=== PATIENT | female | born 1980 | race Caucasian/White ===

== ENCOUNTER 2017-02-04 17:00 | Emergency (ER) | payer SELFPAY ==
[2017-02-04] MEDS ORDERED: Ondansetron 4 MG/2 ML SDV IVPUSH ONE ×2 (17:14→18:01)
[2017-02-04] MEDS ORDERED: Sodium Chloride 0.9% 1,000 ML IV ONE (17:14)
--- NOTE | 2017-02-04 17:16 | EDM.PDOC ---
ED HPI GENERAL MEDICAL PROBLEM - General Chief Complaint: Gastrointestinal Problem Stated Complaint: VOMITING Time Seen by Provider: 02/04/17 17:13 Source of Information: Reports: Patient - History of Present Illness INITIAL COMMENTS - FREE TEXT/NARRATIVE: Patient is here today for evaluation of acute onset nausea and vomiting. She states it started at approximately 2 PM today she did go to [employer] to get lunch and had felt fine all morning, she states this and she started eating even with the first bite her vomiting started. She is here for persistent vomiting and nausea as well as upper abdominal pain. She denies any diarrhea or constipation. She states her bowel movements have been normal every single day , soft and formed. Patient denies any history of chronic abdominal disorders. She is not on any medications. She has not had any contact with people with GI illness, both of her sons have had respiratory illnesses. Patient has had a history of cholecystectomy and tubal ligation as well as 2 sections. Upper Epigastric Pain Score (Numeric/FACES): 10 - Related Data Allergies Allergy/AdvReac Type Severity Reaction Status Date / Time Penicillins Allergy Rash Verified 02/04/17 17:06 Home Meds: Home Meds Ondansetron [Zofran ODT] 4 mg PO Q8H PRN #10 tab.dis 02/04/17 [Rx] ED ROS GENERAL - Review of Systems Review Of Systems: See Below Constitutional: Denies: Fever, Chills, Weakness HEENT: Reports: No Symptoms Respiratory: Reports: No Symptoms Cardiovascular: Reports: No Symptoms GI/Abdominal: Reports: Abdominal Pain (Epigastric), Decreased Appetite, Nausea, Vomiting. Denies: Black Stool, Bloody Stool, Constipation, Diarrhea : Reports: No Symptoms Musculoskeletal: Reports: No Symptoms Skin: Reports: No Symptoms Neurological: Reports: No Symptoms ED EXAM, GI/ABD - Physical Exam Exam: See Below Exam Limited By: No Limitations General Appearance: Alert, WD/WN, Anxious, Mild Distress Throat/Mouth: Normal Inspection, Normal Oropharynx Head: Atraumatic, Normocephalic Neck: Normal Inspection. No: Lymphadenopathy (L), Lymphadenopathy (R) Respiratory/Chest: No Respiratory Distress, Normal Breath Sounds, No Accessory Muscle Use Cardiovascular: Normal Peripheral Pulses, Regular Rate, Rhythm, No Murmur, No Rub GI/Abdominal Exam: Normal Bowel Sounds, Soft, Other (Mild diffuse abdominal tenderness) Extremities: Normal Inspection Neurological: Alert, Oriented Psychiatric: Anxious Skin Exam: Warm, Dry, Intact Course - Vital Signs Last Recorded V/S: Last Vital Signs Temp 97.0 F 02/04/17 20:58 Pulse 55 L 02/04/17 20:58 Resp 16 02/04/17 20:58 BP 124/72 02/04/17 20:58 Pulse Ox 95 02/04/17 20:58 - Orders/Labs/Meds Orders: Active Orders 24 hr Category Date Time Status Abdomen Pelvis w Cont [CT] Stat Exams 02/04/17 18:13 Taken HCG QUALITATIVE,URINE [URCHEM] Stat Lab 02/04/17 17:15 Uncollected UA W/MICROSCOPIC [URIN] Stat Lab 02/04/17 17:15 Uncollected Labs: Laboratory Tests 02/04/17 02/04/17 02/04/17 Range/Units 17:15 17:15 17:26 WBC 10.22 H (3.98-10.04) K/mm3 RBC 4.70 (3.98-5.22) M/mm3 Hgb 15.0 (11.2-15.7) gm/L Hct 43.8 (34.1-44.9) % MCV 93.2 (79.4-94.8) fl MCH 31.9 (25.6-32.2) pg MCHC 34.2 (32.2-35.5) g/dl RDW Std Deviation 43.8 (36.4-46.3) fL Plt Count 459 H (182-369) K/mm3 MPV 10.8 (9.4-12.3) fl Neutrophils % (Manual) 70 H (40-60) % Band Neutrophils % 0 (0-10) % Lymphocytes % (Manual) 22 (20-40) % Atypical Lymphs % 0 % Monocytes % (Manual) 6 (2-10) % Eosinophils % (Manual) 1 (0.7-5.8) % Basophils % (Manual) 1 (0.1-1.2) Platelet Estimate Increased Plt Morphology Comment See note RBC Morph Comment Normal Sodium 139 (136-145) mEq/L Potassium 3.1 L (3.5-5.1) mEq/L Chloride 100 (98-107) mEq/L Carbon Dioxide 23 (21-32) mEq/L Anion Gap 19.1 H (5-15) BUN 4 L (7-18) mg/dL Creatinine 1.2 H (0.55-1.02) mg/dL Est Cr Clr Drug Dosing 63.10 mL/min Estimated GFR (MDRD) 50 (>60) mL/min BUN/Creatinine Ratio 3.3 L (14-18) Glucose 136 H (74-106) mg/dL Calcium 9.8 (8.5-10.1) mg/dL Total Bilirubin 0.9 (0.2-1.0) mg/dL AST 27 (15-37) U/L ALT 28 (14-59) U/L Alkaline Phosphatase 85 (46-116) U/L C-Reactive Protein < 0.2 (<1.0) mg/dL Total Protein 8.1 (6.4-8.2) g/dl Albumin 4.8 (3.4-5.0) g/dl Globulin 3.3 gm/dL Albumin/Globulin Ratio 1.5 (1-2) Lipase 138 (73-393) U/L H. pylori IgG Antibody Negative (NEGATIVE) Meds: Medications Discontinued Medications Generic Name Dose Route Start Last Admin Trade Name Freq PRN Reason Stop Dose Admin Diphenhydramine HCl 25 mg 02/04/17 18:12 02/04/17 18:20 Benadryl IVPUSH 02/04/17 18:13 25 mg ONETIME ONE Administration Hydromorphone HCl 0.5 mg 02/04/17 20:28 02/04/17 20:38 Dilaudid IVPUSH 02/04/17 20:29 0.5 mg ONETIME ONE Administration Sodium Chloride 1,000 mls @ 999 mls/hr 02/04/17 17:14 02/04/17 17:22 Normal Saline IV 02/04/17 18:14 999 mls/hr ONETIME ONE Administration Iopamidol 100 ml 02/04/17 18:54 02/04/17 19:03 Isovue-300 (61%) IVPUSH 02/04/17 18:55 100 ml ONETIME ONE Administration Ketorolac Tromethamine 30 mg 02/04/17 17:24 02/04/17 17:35 Toradol IVPUSH 02/04/17 17:25 30 mg ONETIME ONE Administration Lorazepam 0.5 mg 02/04/17 17:24 02/04/17 17:32 Ativan IVPUSH 02/04/17 17:25 0.5 mg ONETIME ONE Administration Metoclopramide HCl 5 mg 02/04/17 18:12 02/04/17 18:24 Reglan IVPUSH 02/04/17 18:13 5 mg ONETIME ONE Administration Ondansetron HCl 4 mg 02/04/17 17:14 02/04/17 17:22 Zofran IVPUSH 02/04/17 17:15 4 mg ONETIME ONE Administration Ondansetron HCl 4 mg 02/04/17 18:01 02/04/17 18:09 Zofran IVPUSH 02/04/17 18:02 4 mg ONETIME ONE Administration Sodium Chloride 10 ml 02/04/17 18:54 02/04/17 19:03 Saline Flush FLUSH 02/04/17 18:55 10 ml ONETIME ONE Administration - Re-Assessments/Exams Free Text/Narrative Re-Assessment/Exam: Patient with moderate epigastric tenderness and persistent vomiting. She had mild relief improvement in nausea with 4 mg Zofran 2 doses. Pain persists after Toradol, though she is much more relaxed with the Ativan. Will give patient [address] her abdomen/pelvis. Will use IV contrast only as I do not feel patient would tolerate oral contrast. 02/04/17 18:31 Upon recheck after patient's CT she is resting comfortably and sleeping in her room. Patient's friend states that her nausea had pretty much resolved and she was not having significant pain after the Reglan. 02/04/17 19:37 CT demonstrates no acute abnormality. WBC mildly elevated at 10,220 with 70% neutrophils and no bands. Potassium a bit low at 3.1 likely due to patient's vomiting. Patient does report marijuana use but states that this is rare and intermittent. She denies use recently. I did advise patient that this could actually worsen her nausea and vomiting and recommend that she avoid marijuana use. Will discharge patient home with Zofran for nausea. Recommend bland diet and increased oral fluids. Patient has a bit of an upset stomach still so will not give her oral potassium, will give her handout for high potassium diet. Patient will follow-up with her PCP next week or return to the ER if needed. 02/04/17 20:23 02/04/17 21:18 Departure - Departure Time of Disposition: 20:46 Disposition: Home, Self-Care 01 Condition: Fair Clinical Impression: Gastroenteritis - Discharge Information Prescriptions: Ondansetron [Zofran ODT] 4 mg PO Q8H PRN #10 tab.dis PRN Reason: Nausea Instructions: Viral Gastroenteritis, Adult, [id number], Dehydration, Adult, [id number] Referrals: PCP,None [Primary Care Provider] - Forms: ED Department Discharge Additional Instructions: Take the Zofran as needed for nausea or vomiting. Try to keep with the oral fluids mainly water but Gatorade if needed. Avoid marijuana use. You may start trying to eat tomorrow if feeling better, bland diet with limited sugar/spice/dairy until your back to normal. Your potassium was a bit low, this is very common with vomiting. I have enclosed a handout for high potassium diet I recommend that you follow this for the next week once you are tolerating oral foods again. Follow up with your PCP next week or certainly return to ER if any worsening of symptoms. - My Orders Last 24 Hours: My Active Orders 02/04/17 17:15 HCG QUALITATIVE,URINE [URCHEM] Stat UA W/MICROSCOPIC [URIN] Stat 02/04/17 18:13 Abdomen Pelvis w Cont [CT] Stat - Assessment/Plan Last 24 Hours: My Active Orders 02/04/17 17:15 HCG QUALITATIVE,URINE [URCHEM] Stat UA W/MICROSCOPIC [URIN] Stat 02/04/17 18:13 Abdomen Pelvis w Cont [CT] Stat
[2017-02-04] MEDS ORDERED: LORazepam 2 MG/ML SDV IVPUSH ONE (17:24)
[2017-02-04] MEDS ORDERED: Ketorolac 30 MG/ML SDV IVPUSH ONE (17:24)
[2017-02-04] MEDS ORDERED: diphenhydrAMINE 50 MG/ML SDV IVPUSH ONE (18:12)
[2017-02-04] MEDS ORDERED: Metoclopramide 10 MG/2 ML SDV IVPUSH ONE (18:12)
[2017-02-04] MEDS ORDERED: Iopamidol 612 MG/ML 100 ML Bottle IVPUSH ONE (18:54)
[2017-02-04] MEDS ORDERED: Sodium Chloride 0.9% 10 ML Syringe FLUSH ONE (18:54)
[2017-02-04] MEDS ORDERED: HYDROmorphone 0.5 MG/0.5 ML Syringe IVPUSH ONE (20:28)
--- NOTE | 2017-02-06 09:23 | CT ---
CT abdomen and pelvis Technique: Multiple axial sections were obtained from above the dome of the diaphragm inferiorly through the pubic symphysis. Intravenous contrast was utilized. No oral contrast has been given. Delayed images were obtained through the bladder. Comparison: No prior abdominal imaging. Findings: Small portion of the visualized lung bases shows nothing acute. Visualized liver and spleen are within normal limits. Adrenal glands show no nodule. Pancreas is within normal limits. Kidneys show symmetric contrast enhancement without hydronephrosis or mass. Surgical clips are seen from prior cholecystectomy. Aorta shows no aneurysmal dilatation. No retroperitoneal adenopathy or mesenteric abnormalities are seen. No pelvic mass or adenopathy is identified. Contrast seen within both distal ureters and within the bladder. Follicles are seen within both ovaries. Appendix is seen and appears normal in size. No free fluid or inflammatory change is seen. Bone window settings were reviewed which appear within normal limits for the patient's age. Impression: 1. Nothing acute is identified on CT study of the abdomen and pelvis. Diagnostic code #2 I agree with preliminary report issued by [employer] ([facility] report finalized on 02/04/17, 8:53 PM Central Time)
== END 2017-02-04 21:12 | disposition home or self-care (01) ==
LOC: JD.ED 17:00
DX: K52.9 Noninfective gastroenteritis and colitis, unspecified (principal); Z88.0 Allergy status to penicillin; Z90.49 Acquired absence of other specified parts of digestive tract
CPT/HCPCS: 36415; 74177; 80053; 83690; 85025; 86140; 86677; 96361; 96374; 96375; 96376; 99284; J1170; J1200; J1885; J2060; J2405; J2765; J7040; J7050; Q9967

== ENCOUNTER 2022-04-12 20:43 | Emergency (ER) | payer SELFPAY ==
[2022-04-12] MEDS ORDERED: Metoclopramide 10 MG/2 ML SDV IVPUSH ONE (21:00)
[2022-04-12] MEDS ORDERED: Dextrose 5%-0.9% NaCl 1,000 ML IV SCH (21:00)
[2022-04-12] MEDS ORDERED: HYDROmorphone 1 MG/ML Syringe IVPUSH ONE (21:01)
[2022-04-12 22:29] LABS: ESTIMATED GFR 71 mL/min (>60)
[2022-04-12] MEDS ORDERED: Iopamidol 612 MG/ML 100 ML Bottle IVPUSH ONE (22:48)
[2022-04-12] MEDS ORDERED: Lactated Ringers 1,000 ML IV SCH (23:00)
== END 2022-04-13 00:10 | disposition home or self-care (01) ==
LOC: JD.ED 20:43
DX: O99.611 Diseases of the digestive system complicating pregnancy, first trimester (principal); K52.9 Noninfective gastroenteritis and colitis, unspecified; O09.521 Supervision of elderly multigravida, first trimester; Z88.0 Allergy status to penicillin
CPT/HCPCS: 36415; 74018; 74018-26; 74177; 74177-26; 80053; 80306; 80307; 81001; 82977; 83690; 83735; 83880; 84702; 84703; 85025; 85610; 86140; 86850; 86900; 86901; 96361; 96374; 96375; 99284; 99284-25; J1170; J2765; J7042; J7120; Q9967

== ENCOUNTER 2022-09-10 22:12 | Emergency (ER) | payer MEDICAID ==
[2022-09-10] MEDS ORDERED: Prochlorperazine 10 MG/2 ML SDV IVPUSH ONE (23:04)
[2022-09-10] MEDS ORDERED: diphenhydrAMINE 50 MG/ML SDV IVPUSH ONE (23:04)
[2022-09-10] MEDS ORDERED: Ketorolac 30 MG/ML SDV IVPUSH ONE (23:04)
[2022-09-10] MEDS ORDERED: Sodium Chloride 0.9% 10 ML Syringe FLUSH PRN (23:05)
[2022-09-10 23:35] LABS: BASOPHILS ABSOLUTE AUTO 0.01 K/mm3 (0.01-0.08); BASOPHILS PERCENT AUTO 0.1 % (0.1-1.2); EOSINOPHILS ABSOLUTE AUTO 0.01 K/mm3 (0.04-0.36); EOSINOPHILS PERCENT AUTO 0.1 (0.7-5.8); HEMATOCRIT 43.9 % (34.1-44.9); IMMATURE GRAN ABSOLUTE AUTO 0.03 K/mm3 (0.00-0.10); IMMATURE GRAN PERCENT AUTO 0.4 % (<=1.0); LYMPHOCYTES ABSOLUTE AUTO 1.19 K/mm3 (1.18-3.74); LYMPHOCYTES PERCENT AUTO 14.9 % (19.3-51.7); MEAN CORPUSCULAR HEMOGLOBIN 30.8 pg (25.6-32.2); MEAN CORPUSCULAR HGB CONC 34.2 g/dl (32.2-35.5); MEAN CORPUSCULAR VOLUME 90.1 fl (79.4-94.8); MEAN PLATELET VOLUME 10.3 fl (9.4-12.3); MONOCYTES PERCENT AUTO 8.8 % (4.7-12.5); NEUTROPHILS ABSOLUTE AUTO 6.04 K/mm3 (1.56-6.13); NEUTROPHILS PERCENT AUTO 75.7 % (34.0-71.1); PLATELET COUNT,PLT 524 K/mm3 (182-369); RED BLOOD CELL COUNT 4.87 M/mm3 (3.98-5.22); WHITE BLOOD CELL COUNT,WBC 7.98 K/mm3 (3.98-10.04)
[2022-09-10 23:55] LABS: A/G RATIO 1.1 (1-2); ALBUMIN 4.2 g/dl (3.4-5.0); ANION GAP 18.2 (5-15); BILIRUBIN TOTAL 0.3 mg/dL (0.2-1.0); CALCIUM 10.2 mg/dL (8.5-10.1); EST CRCL DRUG DOSING (CG) 80.24 mL/min; POTASSIUM,K 4.2 mEq/L (3.5-5.1); PROTEIN TOTAL,TP 8.2 g/dl (6.4-8.2)
[2022-09-11] MEDS ORDERED: Magnesium Oxide 400 MG Tab PO ONE (01:19)
== END 2022-09-11 01:56 | disposition home or self-care (01) ==
LOC: JD.ED 22:12
DX: R11.2 Nausea with vomiting, unspecified (principal)
CPT/HCPCS: 36415; 80053; 83735; 85025; 93005; 96374; 96375; 99285; A9270; J0780; J1200; J1885; 93010; 99284

== ENCOUNTER 2022-11-04 16:49 | Emergency (ER) | payer SELFPAY ==
[2022-11-04] MEDS ORDERED: Ondansetron 4 MG/2 ML SDV IVPUSH ONE (17:10)
[2022-11-04] MEDS ORDERED: HYDROmorphone 0.5 MG/0.5 ML Syringe IVPUSH ONE ×2 (17:10→17:52)
[2022-11-04] MEDS ORDERED: Metoclopramide 10 MG/2 ML SDV IVPUSH ONE (17:16)
[2022-11-04 17:25] LABS: BASOPHILS ABSOLUTE AUTO 0.1 K/mm3 (0.0-0.2); BASOPHILS PERCENT AUTO 0.5 % (0.0-1.0); EOSINOPHILS ABSOLUTE AUTO 0.1 K/mm3 (0.0-0.4); EOSINOPHILS PERCENT AUTO 0.9 % (0.0-6.0); HEMATOCRIT 40.2 % (37.0-47.0); HEMOGLOBIN 13.8 gm/dl (12.0-16.0); IMMATURE GRAN ABSOLUTE AUTO 0.02 K/mm3 (0.00-0.05); IMMATURE GRAN PERCENT AUTO 0.2 % (0.0-0.4); LYMPHOCYTES ABSOLUTE AUTO 2.2 K/mm3 (1.0-4.8); LYMPHOCYTES PERCENT AUTO 22.6 % (24.0-44.0); MEAN CORPUSCULAR HEMOGLOBIN 31.1 pg (28.0-32.0); MEAN CORPUSCULAR HGB CONC 34.3 g/dl (32.0-36.0); MEAN CORPUSCULAR VOLUME 90.5 fl (83.0-99.0); MEAN PLATELET VOLUME 10.2 fl (9.4-12.3); MONOCYTES ABSOLUTE AUTO 0.7 K/mm3 (0.0-0.8); NEUTROPHILS ABSOLUTE AUTO 6.7 K/mm3 (1.8-7.7); NEUTROPHILS PERCENT AUTO 68.8 % (41.0-71.0); PLATELET COUNT,PLT 462 K/mm3 (150-400); RED BLOOD CELL COUNT 4.44 M/mm3 (4.10-5.30); WHITE BLOOD CELL COUNT,WBC 9.79 K/mm3 (3.9-11.3)
[2022-11-04 17:49] LABS: A/G RATIO 1.4 (1-2); ALANINE AMINOTRANSFERASE,ALT 21 U/L (14-59); ALBUMIN 4.6 g/dl (3.4-5.0); ALKALINE PHOSPHATASE 137 U/L (46-116); ANION GAP 14.6 (5-15); ASPARTATE AMNIOTRANSFERASE,AST 14 U/L (15-37); BILIRUBIN TOTAL 0.6 mg/dL (0.2-1.0); BLOOD UREA NITROGEN,BUN 7 mg/dL (7-18); C-REACTIVE PROTEIN <0.2 mg/dL (<1.0); CARBON DIOXIDE,CO2 23 mEq/L (21-32); CHLORIDE,CL 105 mEq/L (98-107); EST CRCL DRUG DOSING (CG) 80.24 mL/min; ESTIMATED GFR 71 mL/min (>60); GLUCOSE RANDOM 119 mg/dL (70-99); POTASSIUM,K 3.6 mEq/L (3.5-5.1); PROTEIN TOTAL,TP 7.9 g/dl (6.4-8.2); SODIUM,NA 139 mEq/L (136-145)
[2022-11-04] MEDS ORDERED: LORazepam 2 MG/ML SDV IVPUSH ONE (17:52)
[2022-11-04] MEDS ORDERED: diphenhydrAMINE 50 MG/ML SDV IVPUSH ONE (17:58)
[2022-11-04] MEDS ORDERED: Haloperidol Lactate 5 MG/ML SDV IVPUSH ONE (18:03)
[2022-11-04] MEDS ORDERED: Sodium Chloride 0.9% 10 ML Syringe FLUSH PRN (18:16)
[2022-11-04] MEDS ORDERED: Iopamidol 612 MG/ML 100 ML Bottle IVPUSH ONE (18:16)
[2022-11-04] MEDS ORDERED: Prochlorperazine 5 MG in Sodium Chloride 0.9% 50 ML IV ONE (19:49)
[2022-11-04] MEDS ORDERED: Sodium Chloride 0.9% 1,000 ML IV SCH (20:00)
== END 2022-11-04 22:38 | disposition home or self-care (01) ==
LOC: JD.ED 16:49
DX: R11.2 Nausea with vomiting, unspecified (principal); R10.84 Generalized abdominal pain; F17.210 Nicotine dependence, cigarettes, uncomplicated; Z86.16 Personal history of COVID-19; Z79.899 Other long term (current) drug therapy; Z88.0 Allergy status to penicillin; Z88.2 Allergy status to sulfonamides; Z88.5 Allergy status to narcotic agent
CPT/HCPCS: 36415; 74177; 80053; 84702; 85025; 86140; 93005; 96361; 96365; 96375; 96376; 99284; J0780; J1170; J1200; J1630; J2060; J2765; J3490; J7030; Q9967; 93010

== ENCOUNTER 2023-05-25 01:26 | Emergency (ER) | payer MEDICAID ==
[2023-05-25] MEDS: Metoclopramide 10 MG/2 ML SDV IM ONE (01:46)
[2023-05-25 02:12] LABS: BASOPHILS PERCENT AUTO 0.3 % (0.0-1.0); EOSINOPHILS PERCENT AUTO 0.3 % (0.0-6.0); HEMATOCRIT 36.6 % (37.0-47.0); HEMOGLOBIN 12.6 gm/dl (12.0-16.0); IMMATURE GRAN ABSOLUTE AUTO 0.04 K/mm3 (0.00-0.05); IMMATURE GRAN PERCENT AUTO 0.4 % (0.0-0.4); LYMPHOCYTES ABSOLUTE AUTO 1.2 K/mm3 (1.0-4.8); LYMPHOCYTES PERCENT AUTO 10.9 % (24.0-44.0); MEAN CORPUSCULAR HEMOGLOBIN 30.7 pg (28.0-32.0); MEAN CORPUSCULAR HGB CONC 34.4 g/dl (32.0-36.0); MEAN CORPUSCULAR VOLUME 89.1 fl (83.0-99.0); MEAN PLATELET VOLUME 10.3 fl (9.4-12.3); MONOCYTES ABSOLUTE AUTO 0.4 K/mm3 (0.0-0.8); MONOCYTES PERCENT AUTO 3.2 % (0.0-8.0); NEUTROPHILS ABSOLUTE AUTO 9.2 K/mm3 (1.8-7.7); NEUTROPHILS PERCENT AUTO 84.9 % (41.0-71.0); PLATELET COUNT,PLT 402 K/mm3 (150-400); RED BLOOD CELL COUNT 4.11 M/mm3 (4.10-5.30); WHITE BLOOD CELL COUNT,WBC 10.81 K/mm3 (3.9-11.3)
[2023-05-25 02:40] LABS: A/G RATIO 1.5 (1-2); ALBUMIN 4.3 g/dl (3.4-5.0); ANION GAP 18.4 (5-15); BILIRUBIN TOTAL 0.6 mg/dL (0.2-1.0); BUN/CREATININE RATIO 5.6 (14-18); CALCIUM 9.3 mg/dL (8.5-10.1); CREATININE 0.9 mg/dL (0.55-1.02); EST CRCL DRUG DOSING (CG) 85.01 mL/min; POTASSIUM,K 3.4 mEq/L (3.5-5.1); PROTEIN TOTAL,TP 7.2 g/dl (6.4-8.2)
[2023-05-25 02:47] LABS: APPEARANCE,URINE CLEAR (Clear); BILIRUBIN,URINE NEGATIVE (Negative); COLOR,URINE YELLOW (Yellow); GLUCOSE,URINE NEGATIVE (Negative); KETONES,URINE 2+ (Negative); LEUKOCYTE ESTERASE,URINE NEGATIVE (Negative); NITRITE,URINE NEGATIVE (Negative); OCCULT BLOOD,URINE NEGATIVE (Negative); PH,URINE 8.5 (5.0-8.0); PROTEIN,URINE TRACE (Negative); UROBILINOGEN,URINE 0.2 (0.2-1.0)
[2023-05-25] MEDS: Dicyclomine 20 MG/2 ML SDV IM ONE (02:54)
[2023-05-25 02:57] LABS: BARBITURATE SCREEN,URINE NEGATIVE (CUTOFF=200); BENZODIAZEPINES SCREEN,URINE NEGATIVE (CUTOFF=150); BUPRENORPHINE SCREEN,URINE NEGATIVE (CUTOFF=10); METHADONE SCREEN, URINE NEGATIVE (CUTOFF=200); METHAMPHETAMINES SCREEN, URINE NEGATIVE (CUTOFF=500); OXYCODONE SCREEN,URINE NEGATIVE (CUT0FF=100); THC SCREEN,URINE 20 NG/ML PRESUMPTIVE POSITIVE (CUTOFF=50)
[2023-05-25 02:59] LABS: AMORPHOUS SEDIMENT,URINE MODERATE /hpf (NOT SEEN); BACTERIA,URINE RARE /hpf (FEW); EPITHELIAL CELLS,URINE NOT SEEN /hpf (0-5); MUCUS,URINE NOT SEEN /hpf (FEW); RBC,URINE 0-5 /hpf (0-5); WBC,URINE 0-5 /hpf (0-5)
[2023-05-25 03:02] LABS: AMPHETAMINES SCREEN, URINE NEGATIVE (CUTOFF=500)
[2023-05-25] MEDS: Ketorolac 60 MG/2 ML SDV IM ONE (03:48)
== END 2023-05-25 03:56 | disposition home or self-care (01) ==
LOC: JD.ED 01:26
DX: R10.9 Unspecified abdominal pain (principal); R11.2 Nausea with vomiting, unspecified; Z88.0 Allergy status to penicillin; Z88.5 Allergy status to narcotic agent; Z88.2 Allergy status to sulfonamides; Z79.899 Other long term (current) drug therapy; Z90.710 Acquired absence of both cervix and uterus; Z86.16 Personal history of COVID-19; Z90.49 Acquired absence of other specified parts of digestive tract
CPT/HCPCS: 36415; 74176; 80053; 80306; 80307; 81001; 81025; 83690; 84484; 85025; 96372; 99284; J0500; J1885; J2765

== ENCOUNTER 2023-05-28 00:14 | Emergency (ER) | payer MEDICAID ==
[2023-05-28 01:03] LABS: BASOPHILS PERCENT AUTO 0.3 % (0.0-1.0); EOSINOPHILS PERCENT AUTO 0.2 % (0.0-6.0); HEMATOCRIT 44.3 % (37.0-47.0); IMMATURE GRAN ABSOLUTE AUTO 0.04 K/mm3 (0.00-0.05); IMMATURE GRAN PERCENT AUTO 0.4 % (0.0-0.4); LYMPHOCYTES ABSOLUTE AUTO 2.9 K/mm3 (1.0-4.8); LYMPHOCYTES PERCENT AUTO 25.6 % (24.0-44.0); MEAN CORPUSCULAR HEMOGLOBIN 30.5 pg (28.0-32.0); MEAN CORPUSCULAR HGB CONC 35.2 g/dl (32.0-36.0); MEAN CORPUSCULAR VOLUME 86.7 fl (83.0-99.0); MEAN PLATELET VOLUME 10.6 fl (9.4-12.3); MONOCYTES PERCENT AUTO 8.6 % (0.0-8.0); NEUTROPHILS ABSOLUTE AUTO 7.4 K/mm3 (1.8-7.7); NEUTROPHILS PERCENT AUTO 64.9 % (41.0-71.0); RED BLOOD CELL COUNT 5.11 M/mm3 (4.10-5.30); WHITE BLOOD CELL COUNT,WBC 11.31 K/mm3 (3.9-11.3)
[2023-05-28] MEDS: HYDROmorphone 0.5 MG/0.5 ML Syringe IVPUSH ONE ×2 (01:04→03:12)
[2023-05-28] MEDS: Metoclopramide 10 MG/2 ML SDV IVPUSH ONE (01:06)
[2023-05-28] MEDS: Sodium Chloride 0.9% 10 ML Syringe FLUSH PRN (01:06)
[2023-05-28] MEDS: Sodium Chloride 0.9% 1,000 ML IV STA (01:06)
[2023-05-28] MEDS: diphenhydrAMINE 50 MG/ML SDV IVPUSH ONE (01:06)
[2023-05-28 01:12] LABS: HEMOGLOBIN 15.6 gm/dl (12.0-16.0); PLATELET COUNT,PLT 519 K/mm3 (150-400)
[2023-05-28 01:16] LABS: A/G RATIO 1.3 (1-2); ALBUMIN 4.4 g/dl (3.4-5.0); ANION GAP 19.5 (5-15); BILIRUBIN TOTAL 0.7 mg/dL (0.2-1.0); BUN/CREATININE RATIO 8.9 (14-18); CALCIUM 9.7 mg/dL (8.5-10.1); CREATININE 0.9 mg/dL (0.55-1.02); EST CRCL DRUG DOSING (CG) 81.96 mL/min; POTASSIUM,K 3.5 mEq/L (3.5-5.1); PROTEIN TOTAL,TP 7.8 g/dl (6.4-8.2)
[2023-05-28 01:46] LABS: APPEARANCE,URINE CLEAR (Clear); BILIRUBIN,URINE 2+ (Negative); COLOR,URINE YELLOW (Yellow); GLUCOSE,URINE NEGATIVE (Negative); KETONES,URINE 2+ (Negative); LEUKOCYTE ESTERASE,URINE 1+ (Negative); NITRITE,URINE NEGATIVE (Negative); OCCULT BLOOD,URINE NEGATIVE (Negative); PH,URINE 6.5 (5.0-8.0); PROTEIN,URINE 1+ (Negative); UROBILINOGEN,URINE 0.2 (0.2-1.0)
[2023-05-28 01:54] LABS: RBC,URINE 0-5 /hpf (0-5)
[2023-05-28 01:55] LABS: BACTERIA,URINE MODERATE /hpf (FEW); HYALINE CASTS,URINE 20-30 /lpf (0-5); MUCUS,URINE MANY /hpf (FEW); SQUAMOUS EPITHELIAL CELLS,UR 0-5 /hpf (0-5)
[2023-05-28] MEDS: Sodium Chloride 0.9% 1,000 ML IV ONE (03:12)
[2023-05-28] MEDS: Ondansetron 4 MG/2 ML SDV IVPUSH ONE (03:12)
== END 2023-05-28 07:11 | disposition home or self-care (01) ==
LOC: JD.ED 00:14
DX: R11.2 Nausea with vomiting, unspecified (principal); R10.84 Generalized abdominal pain; F17.210 Nicotine dependence, cigarettes, uncomplicated; Z88.5 Allergy status to narcotic agent; Z88.0 Allergy status to penicillin; Z88.2 Allergy status to sulfonamides; Z79.899 Other long term (current) drug therapy; Z86.16 Personal history of COVID-19; Z90.49 Acquired absence of other specified parts of digestive tract
CPT/HCPCS: 36415; 80053; 81001; 83690; 84484; 84702; 84703; 85025; 93005; 96361; 96374; 96375; 96376; 99285; J1170; J1200; J2405; J2765; J3490; J7030

== ENCOUNTER 2023-05-28 16:00 | Emergency (ER) | payer MEDICAID ==
[2023-05-28] MEDS: Famotidine 20 MG/2 ML SDV IVPUSH ONE (17:08)
[2023-05-28] MEDS: Sodium Chloride 0.9% 1,000 ML IV STA (17:08)
[2023-05-28] MEDS: Pantoprazole 40 MG Vial IVPUSH ONE (17:08)
[2023-05-28] MEDS: Haloperidol Lactate 5 MG/ML SDV IVPUSH ONE (17:08)
[2023-05-28] MEDS: diphenhydrAMINE 50 MG/ML SDV IVPUSH ONE (17:08)
[2023-05-28] MEDS: Sodium Chloride 0.9% 10 ML Syringe FLUSH PRN (17:09)
[2023-05-28 17:11] LABS: BASOPHILS PERCENT AUTO 0.3 % (0.0-1.0); EOSINOPHILS PERCENT AUTO 0.3 % (0.0-6.0); HEMATOCRIT 38.2 % (37.0-47.0); HEMOGLOBIN 13.3 gm/dl (12.0-16.0); IMMATURE GRAN ABSOLUTE AUTO 0.02 K/mm3 (0.00-0.05); IMMATURE GRAN PERCENT AUTO 0.3 % (0.0-0.4); LYMPHOCYTES ABSOLUTE AUTO 2.1 K/mm3 (1.0-4.8); MEAN CORPUSCULAR HEMOGLOBIN 30.5 pg (28.0-32.0); MEAN CORPUSCULAR HGB CONC 34.8 g/dl (32.0-36.0); MEAN CORPUSCULAR VOLUME 87.6 fl (83.0-99.0); MEAN PLATELET VOLUME 10.3 fl (9.4-12.3); MONOCYTES ABSOLUTE AUTO 0.7 K/mm3 (0.0-0.8); MONOCYTES PERCENT AUTO 9.8 % (0.0-8.0); NEUTROPHILS ABSOLUTE AUTO 4.4 K/mm3 (1.8-7.7); NEUTROPHILS PERCENT AUTO 60.3 % (41.0-71.0); PLATELET COUNT,PLT 366 K/mm3 (150-400); RED BLOOD CELL COUNT 4.36 M/mm3 (4.10-5.30); WHITE BLOOD CELL COUNT,WBC 7.25 K/mm3 (3.9-11.3)
[2023-05-28 17:48] LABS: A/G RATIO 1.4 (1-2); ALBUMIN 3.8 g/dl (3.4-5.0); ANION GAP 15.8 (5-15); BILIRUBIN TOTAL 0.7 mg/dL (0.2-1.0); C-REACTIVE PROTEIN 0.05 mg/dL (<0.30); CALCIUM 8.8 mg/dL (8.5-10.1); CREATININE 0.7 mg/dL (0.55-1.02); EST CRCL DRUG DOSING (CG) 107.35 mL/min; POTASSIUM,K 2.8 mEq/L (3.5-5.1); PROTEIN TOTAL,TP 6.5 g/dl (6.4-8.2)
[2023-05-28] MEDS: Alum Hydrox/Mag Hydrox/Simeth 30 ML, Lidocaine 2% 15 ML PO ONE (18:01)
[2023-05-28] MEDS: Metoclopramide 10 MG/2 ML SDV IVPUSH ONE (20:02)
[2023-05-28] MEDS: Potassium Chloride 20 MEQ Tab.ER PO ONE (20:02)
== END 2023-05-28 20:29 | disposition home or self-care (01) ==
LOC: JD.ED 16:00
DX: R11.2 Nausea with vomiting, unspecified (principal); F12.10 Cannabis abuse, uncomplicated; Z91.040 Latex allergy status; Z90.410 Acquired total absence of pancreas; Z79.899 Other long term (current) drug therapy; Z88.2 Allergy status to sulfonamides; Z88.5 Allergy status to narcotic agent; Z88.0 Allergy status to penicillin; Z88.8 Allergy status to other drugs, medicaments and biological substances
CPT/HCPCS: 36415; 80053; 83690; 84702; 85025; 86140; 96361; 96374; 96375; 99284; A9270; C9113; J1200; J1630; J2765; J3490; J7030

== ENCOUNTER 2023-07-16 10:45 | Emergency (ER) | payer MEDICAID ==
[2023-07-16] MEDS: Capsaicin 0.1% Cream 42.5 GM Tube TOP PRN (11:18)
[2023-07-16] MEDS: diphenhydrAMINE 50 MG/ML SDV IVPUSH ONE (11:25)
[2023-07-16] MEDS: Haloperidol Lactate 5 MG/ML SDV IVPUSH ONE (11:25)
[2023-07-16] MEDS: Sodium Chloride 0.9% 1,000 ML IV SCH (11:25)
[2023-07-16 11:39] LABS: BASOPHILS PERCENT AUTO 0.5 % (0.0-1.0); EOSINOPHILS PERCENT AUTO 0.5 % (0.0-6.0); HEMATOCRIT 42.1 % (37.0-47.0); HEMOGLOBIN 14.3 gm/dl (12.0-16.0); IMMATURE GRAN ABSOLUTE AUTO 0.02 K/mm3 (0.00-0.05); IMMATURE GRAN PERCENT AUTO 0.2 % (0.0-0.4); LYMPHOCYTES ABSOLUTE AUTO 1.4 K/mm3 (1.0-4.8); LYMPHOCYTES PERCENT AUTO 17.2 % (24.0-44.0); MEAN CORPUSCULAR HEMOGLOBIN 30.5 pg (28.0-32.0); MEAN CORPUSCULAR VOLUME 89.8 fl (83.0-99.0); MEAN PLATELET VOLUME 10.3 fl (9.4-12.3); MONOCYTES ABSOLUTE AUTO 0.4 K/mm3 (0.0-0.8); MONOCYTES PERCENT AUTO 4.7 % (0.0-8.0); NEUTROPHILS ABSOLUTE AUTO 6.4 K/mm3 (1.8-7.7); NEUTROPHILS PERCENT AUTO 76.9 % (41.0-71.0); PLATELET COUNT,PLT 423 K/mm3 (150-400); RED BLOOD CELL COUNT 4.69 M/mm3 (4.10-5.30); WHITE BLOOD CELL COUNT,WBC 8.26 K/mm3 (3.9-11.3)
[2023-07-16] MEDS: Sodium Chloride 0.9% 10 ML Syringe FLUSH PRN (11:50)
[2023-07-16 12:01] LABS: A/G RATIO 1.4 (1-2); ALANINE AMINOTRANSFERASE,ALT 23 U/L (14-59); ALBUMIN 4.6 g/dl (3.4-5.0); ALKALINE PHOSPHATASE 104 U/L (46-116); ANION GAP 19.2 (5-15); ASPARTATE AMNIOTRANSFERASE,AST 18 U/L (15-37); BILIRUBIN TOTAL 0.7 mg/dL (0.2-1.0); BLOOD UREA NITROGEN,BUN 9 mg/dL (7-18); BUN/CREATININE RATIO 8.2 (14-18); CARBON DIOXIDE,CO2 23 mEq/L (21-32); CHLORIDE,CL 105 mEq/L (98-107); CREATININE 1.1 mg/dL (0.55-1.02); ESTIMATED GFR 63 mL/min (>60); GLUCOSE RANDOM 153 mg/dL (70-99); LIPASE 43 U/L (16-77); MAGNESIUM 1.6 mg/dL (1.8-2.4); POTASSIUM,K 3.2 mEq/L (3.5-5.1); PROTEIN TOTAL,TP 7.8 g/dl (6.4-8.2); SODIUM,NA 144 mEq/L (136-145)
[2023-07-16 12:03] LABS: C-REACTIVE PROTEIN < 0.05 mg/dL (<0.30)
[2023-07-16] MEDS: Prochlorperazine 10 MG/2 ML SDV IVPUSH ONE (13:33)
== END 2023-07-16 18:00 | disposition home or self-care (01) ==
LOC: JD.ED 10:45
DX: O21.0 Mild hyperemesis gravidarum (principal); Z88.8 Allergy status to other drugs, medicaments and biological substances; Z88.5 Allergy status to narcotic agent; Z88.0 Allergy status to penicillin; Z88.2 Allergy status to sulfonamides; Z79.899 Other long term (current) drug therapy; Z86.16 Personal history of COVID-19; Z90.49 Acquired absence of other specified parts of digestive tract; Z3A.00 Weeks of gestation of pregnancy not specified
CPT/HCPCS: 36415; 80053; 83690; 83735; 84703; 85025; 86140; 96361; 96374; 96375; 99284; A9270; J0780; J1200; J1630; J3490; J7030; 93010

== ENCOUNTER 2023-07-19 01:13 | Emergency (ER) | payer MEDICAID, OTHER ==
[2023-07-19] MEDS: Metoclopramide 10 MG/2 ML SDV IM ONE (01:44)
[2023-07-19] MEDS: Haloperidol Lactate 5 MG/ML SDV IM ONE (01:45)
[2023-07-19] MEDS: Capsaicin 0.1% Cream 42.5 GM Tube TOP ONE (01:46)
[2023-07-19 01:49] LABS: BASOPHILS PERCENT AUTO 0.4 % (0.0-1.0); EOSINOPHILS PERCENT AUTO 0.4 % (0.0-6.0); HEMATOCRIT 39.2 % (37.0-47.0); HEMOGLOBIN 13.6 gm/dl (12.0-16.0); IMMATURE GRAN ABSOLUTE AUTO 0.02 K/mm3 (0.00-0.05); IMMATURE GRAN PERCENT AUTO 0.3 % (0.0-0.4); LYMPHOCYTES ABSOLUTE AUTO 2.3 K/mm3 (1.0-4.8); LYMPHOCYTES PERCENT AUTO 32.9 % (24.0-44.0); MEAN CORPUSCULAR HEMOGLOBIN 30.5 pg (28.0-32.0); MEAN CORPUSCULAR HGB CONC 34.7 g/dl (32.0-36.0); MEAN CORPUSCULAR VOLUME 87.9 fl (83.0-99.0); MONOCYTES ABSOLUTE AUTO 0.6 K/mm3 (0.0-0.8); MONOCYTES PERCENT AUTO 9.1 % (0.0-8.0); NEUTROPHILS PERCENT AUTO 56.9 % (41.0-71.0); PLATELET COUNT,PLT 412 K/mm3 (150-400); RED BLOOD CELL COUNT 4.46 M/mm3 (4.10-5.30); WHITE BLOOD CELL COUNT,WBC 6.96 K/mm3 (3.9-11.3)
[2023-07-19 02:32] LABS: A/G RATIO 1.5 (1-2); ANION GAP 15.7 (5-15); BILIRUBIN TOTAL 0.7 mg/dL (0.2-1.0); BUN/CREATININE RATIO 8.9 (14-18); CALCIUM 8.9 mg/dL (8.5-10.1); CREATININE 0.9 mg/dL (0.55-1.02); EST CRCL DRUG DOSING (CG) 80.83 mL/min; POTASSIUM,K 2.7 mEq/L (3.5-5.1); PROTEIN TOTAL,TP 6.7 g/dl (6.4-8.2)
== END 2023-07-19 03:16 | disposition home or self-care (01) ==
LOC: JD.ED 01:13
DX: R10.84 Generalized abdominal pain (principal); G89.29 Other chronic pain; F17.210 Nicotine dependence, cigarettes, uncomplicated; Z90.49 Acquired absence of other specified parts of digestive tract; Z86.16 Personal history of COVID-19; Z79.899 Other long term (current) drug therapy; Z88.0 Allergy status to penicillin; Z88.2 Allergy status to sulfonamides; Z88.6 Allergy status to analgesic agent; Z88.8 Allergy status to other drugs, medicaments and biological substances
CPT/HCPCS: 36415; 74176; 80053; 83690; 84703; 85025; 96372; 99284; A9270; J1630; J2765; 99283